=== PATIENT | male | born 1975 | race Caucasian/White ===

== ENCOUNTER 2019-07-27 18:38 | Emergency (ER) | payer BC ==
--- NOTE | 2019-07-27 19:44 | UC ---
Back Pain HPI - HPI Summary HPI Summary: 44 y/o male presents to the urgent care c/o left flank pain radiating to this LLQ abdomen w/ also radiation to the left extremity worsen since last night. Pt reports he has Hx of intermittent back pain since 05/2019. He was seen at ER in 05/2019 whe it first started and Rx Prednisone PO and Flexeril PO. 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 He also has Hx of IBS and possible UC since he has an anal fistula, but his Dr has done several colonoscopies and endoscopies and not a final Dx. However, he would like to change PCP. Pt states he was seen today at [place] ER for his back pain and was given a Toradol IM inj and D/C home and no image was done. So he requests and abdominal CT since he had a kidney stone 20 years ago. Pt states pain is mild 6 /10 also associated w/ mild tingling sensation over the left lower extremity. Pt denies saddle anesthesia, fecal or urinary incontinence, SOB, dizziness, chest pain, KIRK, dizziness, N/V/d, blood in the stool. - History of Current Complaint Chief Complaint: UCBackPain Stated Complaint: BACK AND ABDOMINAL PAIN Time Seen by Provider: 07/27/19 19:33 Hx Obtained From: Patient Onset/Duration: Gradual Onset, Lasting Weeks - lower back pain intermittent, Still Present, Worse Since - yesterday w/ constant Left flank pain radiating to the LLQ Timing: Constant Severity Initially: Mild Severity Currently: Moderate Pain Intensity: 6 Pain Scale Used: 0-10 Numeric Back Pain: Is Discrete @ - left flank pain, Radiates To - LLQ Character: Sharp, Spasmodic - w/ bending Aggravating Factor(s): Movement, Bending Alleviating Factor(s): Rest, Other - He was seen today at [facility] ER and was given a Toradol IM inj for pain Associated Signs And Symptoms: Positive: Weakness, Tingling - b/L legs, Abdominal Pain - LLQ, Flank Pain. Negative: Swelling, Redness, Bruising, Fever , Bladder Incontinence, Bowel Incontinence, Pain with Weight Bearing - Risk Factors AAA Risk Factors: Negative TAD Risk Factors: Negative Cauda Equina Risk Factors: Negative Epidural Abscess Risk Factors: Negative - Allergies/Home Medications Allergies/Adverse Reactions: Allergies Allergy/AdvReac Type Severity Reaction Status Date / Time MS Clindamycin [Clindamycin] Allergy Severe See Comment Verified 07/27/19 19:06 MS Penicillins [Penicillins] Allergy Severe Unknown Verified 07/27/19 19:06 Reaction Details MS Gluten Meal [Gluten Meal] Allergy Intermediate Diarrhea Verified 07/27/19 19: 06 MS Mustard Seed Allergy Intermediate Unknown Verified 07/27/19 19:06 [Mustard Seed] Reaction Details MS Wheat Bran [Wheat Bran] Allergy Intermediate Diarrhea Verified 07/27/19 19:06 Home Medications: Home Medications Cyclobenzaprine HCl 10 mg PO Q8HR PRN 07/27/19 [History Confirmed 07/27/19] Hydrocodone/Acetaminophen [Vicodin 5-300 mg] 0.5 tab PO Q6HR PRN 07/27/19 [ History Confirmed 07/27/19] Ketorolac *IM* INJ* [Toradol INJ*] 60 mg IM Q8HR PRN 07/27/19 [History Confirmed 07/27/19] PMH/Surg Hx/FS Hx/Imm Hx Previously Healthy: Yes Other Endocrine History: Psoarisis and arthritis Other GI/ History: IBS and possible UC - Surgical History Surgical History: Yes Surgery Procedure, Year, and Place: eye metal removed 2008 - Family History Known Family History: Positive: Diabetes - Social History Occupation: Employed Full-time Lives: With Family Alcohol Use: None Alcohol Amount: none in a year Substance Use Type: None Smoking Status (MU): Heavy Every Day Tobacco Smoker Type: Cigarettes When Did the Patient Quit Smoking/Using Tobacco: hasn't smoked in 14 days Review of Systems All Other Systems Reviewed And Are Negative: Yes Constitutional: Positive: Negative Skin: Positive: Negative Eyes: Positive: Negative ENT: Positive: Negative Respiratory: Positive: Negative Cardiovascular: Positive: Negative Gastrointestinal: Positive: Abdominal Pain - LLQ abdominal pain Genitourinary: Positive: Frequency, Other - left flank pain radiating to the LLQ Motor: Positive: Negative Neurovascular: Positive: Negative Musculoskeletal: Positive: Decreased ROM - lower back, Other: - left lower back pain Neurological: Positive: Numbness - tingling on both extremities at times Psychological: Positive: Negative Is Patient Immunocompromised?: No Physical Exam - Summary Physical Exam Summary: Vital Signs Reviewed: Yes Appearance: Well-Appearing, Well-Nourished,male sitting in the examining table w/o any apparent distress. Eyes: Positive: Conjunctiva Clear - PERRLA, EOMI. ENT: Positive: Normal ENT inspection, Hearing grossly normal, Pharynx normal, TMs normal, Uvula midline Neck: Positive: Supple, Nontender, No Lymphadenopathy Respiratory: Positive: Chest non-tender, Lungs clear, Normal breath sounds, No respiratory distress Cardiovascular: Positive: RRR, No Murmur, Pulses Normal, Brisk Capillary Refill Abdomen Description: Positive: Nontender, No Organomegaly, Soft. Negative: CVA Tenderness (R), CVA Tenderness (L) Bowel Sounds: Positive: Present Musculoskeletal: Positive: Strength Intact, BACK: Patient walked into the urgent care room with symmetric ambulation, No signs of limping, antalgic, able to bear weight. No signs of trauma, No masses palpated. No mid line tenderness. LF CVAT on percussion, no flank ecchymosis . LF CVAT on percussion, no flank ecchymosis . NO RT CVA tenderness. No sacroiliac notch tenderness, No saddle anesthesia.ROM: limited due to pain, Straight Leg Raise: negative. Patellar reflexes: brisk, symmetric Muscle strength lower extremities. Dorsiflexion/ plantar flexion of ankles. Heel/ toe walk. Lower extremities: Femoral, popliteal, posterior tibial, and dorsalis pedis pulses WNL. Pt refuse rectal exam Neurological: Positive: Alert, Muscle Tone Normal Psychological Exam: Normal Skin Exam: Normal Triage Information Reviewed: Yes Vital Signs: Initial Vital Signs Temp 97.9 F 07/27/19 19:00 Pulse 56 07/27/19 19:00 Resp 18 07/27/19 19:00 BP 115/79 07/27/19 19:00 Pulse Ox 100 07/27/19 19:00 Back Pain Course/Dx - Course Course Of Treatment: 44 y/o male presents to the urgent care c/o left flank pain radiating to this LLQ abdomen w/ also radiation to the left extremity worsen since last night. Pt reports he has Hx of intermittent back pain since 05/2019. He was seen at ER in 05/2019 whe it first started and Rx Prednisone PO and Flexeril PO. 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 He also has Hx of IBS and possible UC since he has an anal fistula, but his Dr has done several colonoscopies and endoscopies and not a final Dx. However, he would like to change PCP. Pt states he was seen today at [place] ER for his back pain and was given a Toradol IM inj and D/C home and no image was done. So he requests and abdominal CT since he had a kidney stone 20 years ago. Pt states pain is mild 6 /10 also associated w/ mild tingling sensation over the left lower extremity. Pt denies saddle anesthesia, fecal or urinary incontinence, SOB, dizziness, chest pain, KIRK, dizziness, N/V/d, blood in the stool. Hx obtained. Pt is hemodynamically stable, Vital: WNL. A&OX3. Pt w/ Point tenderness at left side paraspinal muscles at the level of the level of L2-S1, positive RT paraspinal muscle tenderness and spasm at the same level. No CVAT, no flank ecchymosis on examination. UA: negative. Abdominal/pelvic CT w/o contrast ordered as per PT requests.Impression: IMPRESSION: 1. There is subtle hazy opacity at the root of the mesentery, cannot exclude mild mesenteric panniculitis. 2. No visible renal , ureteral or bladder calculi.There are mild degenerative changes of the spine observed as per radiologist. Pt Rx flexeril PO and Medrol dose cash as directed below. first dose dispense here at the clinic tonight to take home. Patient was instructed to wear a back support and to f/u wit Spinal Nurse Navigator for further management on his DDD and chronic back pain. Patient is able to ambulate freely w/o aid or limp. 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 Plan of care was discussed with the patient and patient understands and agrees. All questions were answered at patient satisfaction. Pt left clinic hemodynamically stable and ambulating, A&OX3 . - Differential Dx/Diagnosis Differential Diagnosis/HQI/PQRI: Arthritis, Compressive Cord Syndrome, Herniated Disc, Renal Colic, Septic Arthritis, Strain, Sprain, Other - UC, diverticulitis Provider Diagnosis: Left flank pain, Back muscle spasm, Degenerative disc disease, Back strain Discharge ED - Sign-Out/Discharge Documenting (check all that apply): Patient Departure - d/C home All imaging exams completed and their final reports reviewed: Yes - Discharge Plan Condition: Stable Disposition: HOME Prescriptions: Cyclobenzaprine TAB* [Flexeril 10 MG TAB*] 10 mg PO TID PRN #20 tab PRN Reason: Spasms - Back methylPREDNISolone [Medrol Dosepak 4 MG*] 4 mg PO .SEE CASH INSTRUCTION #1 cash Patient Education Materials: Low Back Strain (ED), Degenerative Disc Disease ( ED) Referrals: Kayley Christy MD [Primary Care Provider] - [facility] [place] [facility] [Outside] Giovany Gilbert MD [Medical Doctor] - 1 Week Ainsley Stock Ae, RN [Registered Nurse] - 1 Week Additional Instructions: 1- Please take Ibuprofen PO q6-8hrs prn starting tomorrow as directed after meals for pain. Medrol dose cash as directed to alleviate symptoms 2- Take Flexeril PO as directed for muscle spasm. Please do not drive while taking the medication. 3- Avoid strenuous exercise or heavy lifting. Please wear a back support 4- Please call Spinal Nurse Navigator: Chanel Stock: [phone] for further management of your Degenerative disc disease and herniated discs. 5- F/u w/ GI Dr Gilbert for firtherm management on your GI symptoms and messentary pennicullitis. If you develope severe abdominal pain and flank pain w/ fever, please go immediately to the ER for further management 6- Please f/u w/ a PCP form the [facility] network for a second opinion on your chronic symptoms. - Billing Disposition and Condition Condition: STABLE Disposition: Home
[2019-07-27 21:30] VITALS: BP 113/74
[2019-07-27] MEDS ORDERED: Cyclobenzaprine TAB* 10 MG PO ONE (22:32)
[2019-07-27] MEDS ORDERED: predniSONE TAB* 20 MG PO ONE (22:47)
== END 2019-07-27 22:56 | disposition home or self-care (01) ==
LOC: UCEAST 18:38
DX: R10.9 Unspecified abdominal pain (principal); M51.36 Other intervertebral disc degeneration, lumbar region; M62.830 Muscle spasm of back; S39.012A Strain of muscle, fascia and tendon of lower back, initial encounter; X58.XXXA Exposure to other specified factors, initial encounter; Y92.9 Unspecified place or not applicable; Z88.0 Allergy status to penicillin
CPT/HCPCS: 74176; 81003; 99212; A9270-GY; G0463; J7512